=== PATIENT | male | born 1985 | race Caucasian/White ===

== ENCOUNTER 2017-04-02 21:37 | Inpatient (IN) | payer MEDICAID, OTHER ==
[~2017-04-02] VITALS: Ht 170.2 cm; Wt 59.0 kg
[2017-04-02 21:50] VITALS: BP 124/78
[2017-04-02] MEDS ORDERED: Cefepime HCl 1 GM in NS 55 ML IV STA (22:10)
[2017-04-02] MEDS ORDERED: Morphine Sulfate 4mg/ml Inj IVP ONE (22:15)
[2017-04-02] MEDS ORDERED: Vancomycin 1 GM in NS 275 ML IV ONE (22:15)
--- NOTE | 2017-04-02 22:15 | Emergency Room Report ---
History of Present Illness General Chief Complaint: Pain Source: Patient Present Illness HPI The patient presents with a month of rectal pain. It's been worse over 7 days. Last 3 days he started having fevers and chills. The patient is HIV positive and is not taking anti-viral medications for over a year. He's also had a cough. Been nonproductive. He denies any vomiting. He' s been incontinent of stool because he is using numbing medication in the rectal area to help with the pain. The pain is severe 10/10 and constant, burning and sharp when he hasn't used numbing medication. With the medicine, it has reduced the pain. No blood in stool. Sig other suggested possible hemorrhoids. Some mention of possible "trauma" but when asked about this, he denies. No chest pain, lymphadenopathy, NV, dysuria, rashes. No depression. States uses several different drugs, but not recently. 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/17) Patient History Past Medical History: see triage record Social History: Reports: drug use, Denies: smoking, alcohol use Social History Narrative homeless, with sig other Reviewed Nursing Documentation: PMH: Agreed, PSxH: Agreed Nursing Documentation-PMH Hx Asthma: Yes Review of Systems All Other Systems: negative except mentioned in HPI Physical Exam Vital Signs Date Time Temp Pulse Resp B/P (MAP) Pulse Ox O2 Delivery O2 Flow Rate FiO2 04/02/17 21:44 100.6 102 18 124/78 98 Room Air Sp02 EP Interpretation: reviewed, normal General Appearance: well appearing, no apparent distress, GCS 15 Head: normocephalic Eyes: bilateral eye PERRL, bilateral eye Scleral Injection ENT: moist mucus membranes Neck: supple Respiratory: lungs clear, normal breath sounds Cardiovascular #1: regular rate, rhythm Cardiovascular #2: 2+ radial (R) Gastrointestinal: normal inspection, normal bowel sounds, non tender, no mass, non-distended Rectal: tenderness, other - laxity and no bogginess, no erythema or evidence of vesicular lesions Musculoskeletal: back normal, gait/station normal, normal range of motion Neurologic: alert, oriented x3, grossly normal Psychiatric: depressed affect Skin: normal inspection, warm/dry Medical Decision Making Diagnostic Impression: Primary Impression: Proctitis Additional Impressions: HIV (human immunodeficiency virus infection) Non compliance w medication regimen Amphetamine abuse ER Course Patient presents with rectal pain and fever with immune compromise. DDx: Kaposi 's sarcoma, hemorrhoids, proctitis, shimon-rectal abscess, bronchitis, protozoal infection, STD, H. simplex amongst others. At high risk as immune compromised. Evaluation with CXR, CT abdomen/pelvis, labs. Treatment with IV hydration, analgesia and antibiotics. CXR no infiltrate. Labs with low WBC, + amphetamines CT without perirectal abscess (though incomplete exam). Presented to Dr. Clinton who refuses the transfer and wants the patient admitted here. Due to fever, HIV non compliance and rectal pain, needs continued antibiotics and evaluation for possible resumption of antivirals. Admit Med, Dr. Serrano. Laboratory Tests Test 04/02/17 22:45 04/02/17 22:46 04/02/17 23:12 Urine Color Yellow Urine Appearance Clear Urine pH 5 (4.5-8.0) Urine Specific [place] 1.020 (1.005-1.035) Urine Protein Negative (NEGATIVE) Urine Glucose (UA) Negative (NEGATIVE) Urine Ketones Negative (NEGATIVE) Urine Occult Blood Negative (NEGATIVE) Urine Nitrite Negative (NEGATIVE) Urine Bilirubin Negative (NEGATIVE) Urine Urobilinogen Normal MG/DL (0.0-1.0) Urine Leukocyte Esterase Negative (NEGATIVE) Urine Opiates Screen Negative (NEGATIVE) Urine Barbiturates Screen Negative (NEGATIVE) Phencyclidine (PCP) Screen Negative (NEGATIVE) Urine Amphetamines Screen Positive (NEGATIVE) H Urine Benzodiazepines Screen Negative (NEGATIVE) Urine Cocaine Screen Negative (NEGATIVE) Urine Marijuana (THC) Screen Negative (NEGATIVE) White Blood Count 4.0 K/UL (4.8-10.8) L Red Blood Count 4.29 M/UL (4.70-6.10) L Hemoglobin 13.4 G/DL (14.2-18.0) L Hematocrit 39.0 % (42.0-52.0) L Mean Corpuscular Volume 91 FL (80-99) Mean Corpuscular Hemoglobin 31.2 PG (27.0-31.0) H Mean Corpuscular Hemoglobin Concent 34.3 G/DL (32.0-36.0) Red Cell Distribution Width 11.7 % (11.6-14.8) Platelet Count 242 K/UL (150-450) Mean Platelet Volume 6.3 FL (6.5-10.1) L Neutrophils (%) (Auto) 64.0 % (45.0-75.0) Lymphocytes (%) (Auto) 17.3 % (20.0-45.0) L Monocytes (%) (Auto) 10.3 % (1.0-10.0) H Eosinophils (%) (Auto) 6.4 % (0.0-3.0) H Basophils (%) (Auto) 2.0 % (0.0-2.0) Prothrombin Time 10.0 SEC (9.30-11.50) Prothrombin Time INR 1.0 (0.9-1.1) PTT 29 SEC (23-33) Sodium Level 137 MMOL/L (136-145) Potassium Level 3.6 MMOL/L (3.5-5.1) Chloride Level 102 MMOL/L (98-107) Carbon Dioxide Level 29 MMOL/L (21-32) Anion Gap 6 mmol/L (5-15) Blood Urea Nitrogen 14 mg/dL (7-18) Creatinine 1.1 MG/DL (0.55-1.30) Estimate Glomerular Filtration Rate > 60 mL/min (>60) Glucose Level 113 MG/DL (74-106) H Calcium Level 8.5 MG/DL (8.5-10.1) Total Bilirubin 0.2 MG/DL (0.2-1.0) Aspartate Amino Transferase (AST) 32 U/L (15-37) Alanine Aminotransferase (ALT) 37 U/L (12-78) Alkaline Phosphatase 72 U/L (46-116) Total Creatine Kinase 86 U/L (26-308) Troponin I 0.000 ng/mL (0.000-0.056) Total Protein 8.1 G/DL (6.4-8.2) Albumin 3.1 G/DL (3.4-5.0) L Globulin 5.0 g/dL Albumin/Globulin Ratio 0.6 (1.0-2.7) L Lactic Acid Level 1.50 mmol/L (0.66-2.22) EKG Diagnostic Results Rate: normal Rhythm: NSR ST Segments: no acute changes Rhythm Strip Diag. Results EP Interpretation: yes Rhythm: NSR, no PVC's, no ectopy Chest X-Ray Diagnostic Results Chest X-Ray Diagnostic Results : Chest X-Ray Ordered: Yes # of Views/Limited/Complete: 1 View Indication: Other EP Interpretation: Yes Interpretation: no consolidation, no effusion, no pneumothorax, no acute cardiopulmonary disease Impression: Other Electronically Signed by: Electronically signed by Serg Nair MD CT/MRI/US Diagnostic Results CT/MRI/US Diagnostic Results : Imaging Test Ordered: Abdomen and pelvic Impression No definitive evidence of elevated inflammatory changes. Appendix questionably this mode an unremarkable. No bowel dilatation moderate amount of stool in the colon trace amount of nonspecific free fluid in the pelvis mild atelectasis the lungs Last Vital Signs Date Time Temp Pulse Resp B/P (MAP) Pulse Ox O2 Delivery O2 Flow Rate FiO2 04/03/17 02:35 86 20 133/78 97 Room Air 04/02/17 23:27 100.6 Status: improved Disposition: ADMITTED INPATIENT Condition: Serious Referrals: [facility],REFERRING (PCP) Serg Nair M.D. Apr 02, 2017 22:15
[2017-04-02] MEDS ORDERED: Cefepime 1gm vial ONE (22:28)
[2017-04-02] MEDS ORDERED: Vancomycin 1gm inj IVPB ONE (22:29)
[2017-04-02 23:14] LABS: EOSINOPHILS % (AUTO) 6.4 % (0.0-3.0); LYMPHOCYTES % (AUTO) 17.3 % (20.0-45.0); MEAN CORPUSCULAR HEMOGLOBIN 31.2 PG (27.0-31.0); MEAN CORPUSCULAR HGB CONC 34.3 G/DL (32.0-36.0); MEAN CORPUSCULAR VOLUME 91 FL (80-99); MEAN PLATELET VOLUME 6.3 FL (6.5-10.1); MONOCYTES % (AUTO) 10.3 % (1.0-10.0); PLATELET COUNT 242 K/UL (150-450); RED BLOOD COUNT 4.29 M/UL (4.70-6.10); RED CELL DISTRIBUTION WIDTH 11.7 % (11.6-14.8)
[2017-04-02 23:14] LABS: APPEARANCE,URINE CLEAR; KETONES,URINE NEGATIVE (NEGATIVE); NITRITE,URINE NEGATIVE (NEGATIVE); PH,URINE 5 (4.5-8.0); UROBILINOGEN,URINE NORMAL MG/DL (0.0-1.0)
[2017-04-02 23:25] LABS: LEUKOCYTE ESTERASE ,URINE NEGATIVE (NEGATIVE); PROTEIN,URINE NEGATIVE (NEGATIVE)
[2017-04-02 23:53] LABS: ALANINE AMINOTRANSFERASE 37 U/L (12-78); ALBUMIN/GLOBULIN RATIO 0.6 (1.0-2.7); ANION GAP 6 mmol/L (5-15); ASPARTATE AMINO TRANSFERASE 32 U/L (15-37); CALCIUM 8.5 MG/DL (8.5-10.1); CARBON DIOXIDE 29 MMOL/L (21-32); CHLORIDE 102 MMOL/L (98-107); CREATININE 1.1 MG/DL (0.55-1.30); GLOMERULAR FILTRATION RATE > 60 mL/min (>60); POTASSIUM 3.6 MMOL/L (3.5-5.1); SODIUM 137 MMOL/L (136-145); TOTAL PROTEIN 8.1 G/DL (6.4-8.2)
[2017-04-03] MEDS ORDERED: Miralax 17gm pkt ORAL PRN (07:30)
[2017-04-03] MEDS ORDERED: Nitroglycerin Subl 0.4mg tab SL PRN (07:30)
[2017-04-03] MEDS ORDERED: Mylanta II UD 30ml ORAL PRN (07:30)
[2017-04-03 08:54] VITALS: BP 108/55
[2017-04-03] MEDS ORDERED: Zosyn 3.375gm/50ml Premix 50 ML IVPB SCH (09:00)
[2017-04-03] MEDS: Heparin 5000 units/ml inj SUBQ SCH ×2 (09:00→20:08)
[2017-04-03] MEDS: Pantoprazole Inj IVP SCH ×2 (09:00→09:12)
--- NOTE | 2017-04-03 09:07 | Diagnostic Imaging Report ---
Indication: Abdominal pain Technique: Continuous helical transaxial imaging of the abdomen and pelvis was obtained from the lung bases to the pubic symphysis during intravenous contrast administration. Coronal 2-D reformats were also obtained. Study obtained in a Siemens sensation [address] Total Dose length Product (DLP): [address] Dose Index Volume (CTDIvol): 12.77, 0.15 mGy Comparison: None Findings: There is a moderate amount of fecal retention within the colon. The stomach is distended with particular matter as well. Solid organ show no gross abnormalities. The gallbladder is unremarkable. There is no hydronephrosis. The appendix is not well seen. There is no evidence of bowel obstruction, free fluid or free air. Impression: Moderate stool. Negative exam otherwise The CT scanner at [facility] is accredited by the [employer] and the scans are performed using dose optimization techniques as appropriate to a performed exam including Automatic Exposure control.
[2017-04-03] MEDS: D5 1/2NS 1,000 ML IV SCH ×2 (09:12→21:37)
--- NOTE | 2017-04-03 11:08 | Diagnostic Imaging Report ---
Indication: Dyspnea Comparison: None A single view chest radiograph was obtained. Findings: Cardiomediastinal appearance is within normal limits for age. Pulmonary vascularity is appropriate. The diaphragmatic contour is smooth and costophrenic angles are sharp. No pleural effusions are identified. The bones are unremarkable. Impression: No acute findings
[2017-04-03 12:15] VITALS: BP 124/67
--- NOTE | 2017-04-03 13:07 | GI Initial Consult Note ---
History of Present Illness General Date patient seen: Apr 03, 2017 Time patient seen: 13:00 Reason for Hospitalization: Pain Referring physician: VICKEY MANRIQUE Reason for Consultation: RECTAL PAIN Present Illness HPI The patient presents with a month of rectal pain. It's been worse over 7 days. Last 3 days he started having fevers and chills. The patient is HIV positive and is not taking anti-viral medications for over a year. He's also had a cough. Been nonproductive. He denies any vomiting. He' s been incontinent of stool because he is using numbing medication in the rectal area to help with the pain. The pain is severe 10/10 and constant she hasn't used numbing medication. GI consulted for rectal pain. HPI as noted above. Pt seen on floor, awake A& Ox4 NAD with no active s/sx of N/V/D. Rectum is inflamed, with mild rash and tender to touch. Denies any recent sexual contact. Denies any unintentional weight loss or changes in dietary habits. No know history of endoscopy/ colonoscopies. 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) Patient History History Provided By: Patient, Medical Record Past Medical History: other - HIV PMH Narrative Past Medical History: see triage record Social History: Reports: drug use, Denies: smoking, alcohol use Social History Narrative homeless, with sig other Reviewed Nursing Documentation: PMH: Agreed, PSxH: Agreed Nursing Documentation-PMH Hx Asthma: Yes Review of Systems All Other Systems: negative except mentioned in HPI Physical Exam Vital Signs Date Time Temp Pulse Resp B/P (MAP) Pulse Ox O2 Delivery O2 Flow Rate FiO2 04/02/17 21:44 100.6 102 18 124/78 98 Room Air Sp02 EP Interpretation: reviewed, normal Labs Laboratory Tests Test 04/02/17 22:45 04/02/17 22:46 04/02/17 23:12 Urine Color Yellow Urine Appearance Clear Urine pH 5 (4.5-8.0) Urine Specific [place] 1.020 (1.005-1.035) Urine Protein Negative (NEGATIVE) Urine Glucose (UA) Negative (NEGATIVE) Urine Ketones Negative (NEGATIVE) Urine Occult Blood Negative (NEGATIVE) Urine Nitrite Negative (NEGATIVE) Urine Bilirubin Negative (NEGATIVE) Urine Urobilinogen Normal MG/DL (0.0-1.0) Urine Leukocyte Esterase Negative (NEGATIVE) Urine Opiates Screen Negative (NEGATIVE) Urine Barbiturates Screen Negative (NEGATIVE) Phencyclidine (PCP) Screen Negative (NEGATIVE) Urine Amphetamines Screen Positive (NEGATIVE) H Urine Benzodiazepines Screen Negative (NEGATIVE) Urine Cocaine Screen Negative (NEGATIVE) Urine Marijuana (THC) Screen Negative (NEGATIVE) White Blood Count 4.0 K/UL (4.8-10.8) L Red Blood Count 4.29 M/UL (4.70-6.10) L Hemoglobin 13.4 G/DL (14.2-18.0) L Hematocrit 39.0 % (42.0-52.0) L Mean Corpuscular Volume 91 FL (80-99) Mean Corpuscular Hemoglobin 31.2 PG (27.0-31.0) H Mean Corpuscular Hemoglobin Concent 34.3 G/DL (32.0-36.0) Red Cell Distribution Width 11.7 % (11.6-14.8) Platelet Count 242 K/UL (150-450) Mean Platelet Volume 6.3 FL (6.5-10.1) L Neutrophils (%) (Auto) 64.0 % (45.0-75.0) Lymphocytes (%) (Auto) 17.3 % (20.0-45.0) L Monocytes (%) (Auto) 10.3 % (1.0-10.0) H Eosinophils (%) (Auto) 6.4 % (0.0-3.0) H Basophils (%) (Auto) 2.0 % (0.0-2.0) Prothrombin Time 10.0 SEC (9.30-11.50) Prothromb Time International Ratio 1.0 (0.9-1.1) Activated Partial Thromboplast Time 29 SEC (23-33) Sodium Level 137 MMOL/L (136-145) Potassium Level 3.6 MMOL/L (3.5-5.1) Chloride Level 102 MMOL/L (98-107) Carbon Dioxide Level 29 MMOL/L (21-32) Anion Gap 6 mmol/L (5-15) Blood Urea Nitrogen 14 mg/dL (7-18) Creatinine 1.1 MG/DL (0.55-1.30) Estimat Glomerular Filtration Rate > 60 mL/min (>60) Glucose Level 113 MG/DL (74-106) H Calcium Level 8.5 MG/DL (8.5-10.1) Total Bilirubin 0.2 MG/DL (0.2-1.0) Aspartate Amino Transf (AST/SGOT) 32 U/L (15-37) Alanine Aminotransferase (ALT/SGPT) 37 U/L (12-78) Alkaline Phosphatase 72 U/L (46-116) Total Creatine Kinase 86 U/L (26-308) Troponin I 0.000 ng/mL (0.000-0.056) Total Protein 8.1 G/DL (6.4-8.2) Albumin 3.1 G/DL (3.4-5.0) L Globulin 5.0 g/dL Albumin/Globulin Ratio 0.6 (1.0-2.7) L Lactic Acid Level 1.50 mmol/L (0.66-2.22) General Appearance: well appearing, no apparent distress, alert Head: normocephalic EENT: PERRL/EOMI, normal ENT inspection Neck: supple Respiratory: normal breath sounds, no respiratory distress Cardiovascular: normal rate Gastrointestinal: normal inspection, non tender, soft, normal bowel sounds, non -distended Rectal: deferred Genitourinary: deferred Musculoskeletal: normal inspection, back normal Neurologic: normal inspection, alert, oriented x3, responsive Psychiatric: normal inspection, judgement/insight normal, memory normal Skin: normal inspection, normal color, no rash, warm/dry, palpation normal, well hydrated Lymphatic: normal inspection, no adenopathy Current Medications Current Medications Medications (Trade) Dose Ordered Sig/Marjan Route PRN Reason Start Time Stop Time Status Last Admin Dose Admin Acetaminophen (Tylenol) 650 mg Q4H PRN ORAL fever 04/03/17 07:30 05/03/17 07:29 Al Hydroxide/Mg Hydroxide (Mylanta II) 30 ml Q6H PRN ORAL dyspepsia 04/03/17 07:30 05/03/17 07:29 Dextrose (Dextrose 50%) STAT PRN IV Hypoglycemia 04/03/17 07:30 05/03/17 07:29 Dextrose/Sodium Chloride 1,000 ml @ 75 mls/hr [id number] IV 04/03/17 08:00 05/03/17 07:59 04/03/17 09:12 Diphenhydramine HCl (Benadryl) 25 mg Q6H PRN ORAL Itching/Pruritis 04/03/17 07:30 05/03/17 07:29 Heparin Sodium (Porcine) (Heparin 5000 units/ml) 5,000 units EVERY 12 HOURS SUBQ 04/03/17 09:00 05/03/17 08:59 Nitroglycerin (Ntg) 0.4 mg Q5M X 3 DOSES PRN SL Prn Chest Pain 04/03/17 07:30 05/03/17 07:29 Ondansetron HCl (Zofran) 4 mg Q6H PRN IVP Nausea & Vomiting 04/03/17 07:30 05/03/17 07:29 Pantoprazole (Protonix) 40 mg DAILY IVP 04/03/17 09:00 05/03/17 08:59 Piperacillin/ Tazobactam/ Dextrose 50 ml @ 12.5 mls/hr EVERY 8 HOURS IVPB 04/03/17 09:00 04/08/17 08:59 04/03/17 10:15 Polyethylene Glycol (Miralax) 17 gm HSPRN PRN ORAL Constipation 04/03/17 07:30 05/03/17 07:29 Temazepam (Restoril) 15 mg HSPRN PRN ORAL Insomnia 04/03/17 07:30 04/10/17 07:29 GI: Plan Problems: (1) Rectal pain (2) Proctitis (3) Amphetamine abuse (4) HIV (human immunodeficiency virus infection) (5) Non compliance w medication regimen Plan CT AP reviewed >> moderate stool utox >> amphetamine positive Flex sig scheduled for tomorrow. - CLD now, NPO @ SD. - hold all blood thinners tonight Anusol prn fu labs Discussed with Dr. Chávez. Thank you for this patient referral, we will follow. Génesis Madsen N.P. Apr 03, 2017 13:07
--- NOTE | 2017-04-03 14:06 | History and Physical ---
History of Present Illness General Date patient seen: Apr 03, 2017 Reason for Hospitalization: Pain Present Illness HPI 31 year old male with hx of HIV positive and is not taking anti-viral medications for over a year presented with a month of rectal pain. It's been worse over 7 days. Last 3 days he started having fevers and chills. He's also had a cough. Been nonproductive. He denies any vomiting. Patient is admitted for possible proctitis. 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, 04/02/17) Patient History Healthcare decision maker Resuscitation status Advanced Directive on File Past Medical/Surgical History Past Medical/Surgical History: (1) HIV (human immunodeficiency virus infection) Review of Systems All Other Systems: negative except mentioned in HPI Physical Exam General Appearance: WD/WN Lines, tubes and drains: peripheral HEENT: normocephalic, atraumatic Neck: non-tender, normal alignment Respiratory/Chest: chest wall non-tender, lungs clear Breasts: no masses Cardiovascular/Chest: normal rate Abdomen: normal bowel sounds Last 24 Hour Vital Signs Date Time Temp Pulse Resp B/P (MAP) Pulse Ox O2 Delivery O2 Flow Rate FiO2 04/03/17 12:15 98.2 81 18 124/67 100 Room Air 04/03/17 08:54 97.0 84 19 108/55 100 Room Air 04/03/17 02:35 86 20 133/78 97 Room Air 04/02/17 23:27 100.6 04/02/17 21:50 100.6 72 18 124/78 98 Room Air 04/02/17 21:44 100.6 102 18 124/78 98 Room Air Laboratory Tests Test 04/02/17 22:45 04/02/17 22:46 04/02/17 23:12 Urine Color Yellow Urine Appearance Clear Urine pH 5 (4.5-8.0) Urine Specific [place] 1.020 (1.005-1.035) Urine Protein Negative (NEGATIVE) Urine Glucose (UA) Negative (NEGATIVE) Urine Ketones Negative (NEGATIVE) Urine Occult Blood Negative (NEGATIVE) Urine Nitrite Negative (NEGATIVE) Urine Bilirubin Negative (NEGATIVE) Urine Urobilinogen Normal MG/DL (0.0-1.0) Urine Leukocyte Esterase Negative (NEGATIVE) Urine Opiates Screen Negative (NEGATIVE) Urine Barbiturates Screen Negative (NEGATIVE) Phencyclidine (PCP) Screen Negative (NEGATIVE) Urine Amphetamines Screen Positive (NEGATIVE) H Urine Benzodiazepines Screen Negative (NEGATIVE) Urine Cocaine Screen Negative (NEGATIVE) Urine Marijuana (THC) Screen Negative (NEGATIVE) White Blood Count 4.0 K/UL (4.8-10.8) L Red Blood Count 4.29 M/UL (4.70-6.10) L Hemoglobin 13.4 G/DL (14.2-18.0) L Hematocrit 39.0 % (42.0-52.0) L Mean Corpuscular Volume 91 FL (80-99) Mean Corpuscular Hemoglobin 31.2 PG (27.0-31.0) H Mean Corpuscular Hemoglobin Concent 34.3 G/DL (32.0-36.0) Red Cell Distribution Width 11.7 % (11.6-14.8) Platelet Count 242 K/UL (150-450) Mean Platelet Volume 6.3 FL (6.5-10.1) L Neutrophils (%) (Auto) 64.0 % (45.0-75.0) Lymphocytes (%) (Auto) 17.3 % (20.0-45.0) L Monocytes (%) (Auto) 10.3 % (1.0-10.0) H Eosinophils (%) (Auto) 6.4 % (0.0-3.0) H Basophils (%) (Auto) 2.0 % (0.0-2.0) Prothrombin Time 10.0 SEC (9.30-11.50) Prothromb Time International Ratio 1.0 (0.9-1.1) Activated Partial Thromboplast Time 29 SEC (23-33) Sodium Level 137 MMOL/L (136-145) Potassium Level 3.6 MMOL/L (3.5-5.1) Chloride Level 102 MMOL/L (98-107) Carbon Dioxide Level 29 MMOL/L (21-32) Anion Gap 6 mmol/L (5-15) Blood Urea Nitrogen 14 mg/dL (7-18) Creatinine 1.1 MG/DL (0.55-1.30) Estimat Glomerular Filtration Rate > 60 mL/min (>60) Glucose Level 113 MG/DL (74-106) H Calcium Level 8.5 MG/DL (8.5-10.1) Total Bilirubin 0.2 MG/DL (0.2-1.0) Aspartate Amino Transf (AST/SGOT) 32 U/L (15-37) Alanine Aminotransferase (ALT/SGPT) 37 U/L (12-78) Alkaline Phosphatase 72 U/L (46-116) Total Creatine Kinase 86 U/L (26-308) Troponin I 0.000 ng/mL (0.000-0.056) Total Protein 8.1 G/DL (6.4-8.2) Albumin 3.1 G/DL (3.4-5.0) L Globulin 5.0 g/dL Albumin/Globulin Ratio 0.6 (1.0-2.7) L Lactic Acid Level 1.50 mmol/L (0.66-2.22) Height (Feet): 5 Height (Inches): 7.00 Weight (Pounds): 130 Medications Current Medications Medications (Trade) Dose Ordered Sig/Marjan Route PRN Reason Start Time Stop Time Status Last Admin Dose Admin Acetaminophen (Tylenol) 650 mg Q4H PRN ORAL fever 04/03/17 07:30 05/03/17 07:29 Al Hydroxide/Mg Hydroxide (Mylanta II) 30 ml Q6H PRN ORAL dyspepsia 04/03/17 07:30 05/03/17 07:29 Dextrose (Dextrose 50%) STAT PRN IV Hypoglycemia 04/03/17 07:30 05/03/17 07:29 Dextrose/Sodium Chloride 1,000 ml @ 75 mls/hr [id number] IV 04/03/17 08:00 05/03/17 07:59 04/03/17 09:12 Diphenhydramine HCl (Benadryl) 25 mg Q6H PRN ORAL Itching/Pruritis 04/03/17 07:30 05/03/17 07:29 Heparin Sodium (Porcine) (Heparin 5000 units/ml) 5,000 units EVERY 12 HOURS SUBQ 04/03/17 09:00 05/03/17 08:59 Magnesium Citrate (Citrate Of Magnesia) 300 ml ONCE ONCE ORAL 04/03/17 16:00 04/03/17 16:01 Nitroglycerin (Ntg) 0.4 mg Q5M X 3 DOSES PRN SL Prn Chest Pain 04/03/17 07:30 05/03/17 07:29 Ondansetron HCl (Zofran) 4 mg Q6H PRN IVP Nausea & Vomiting 04/03/17 07:30 05/03/17 07:29 Pantoprazole (Protonix) 40 mg DAILY IVP 04/03/17 09:00 05/03/17 08:59 Piperacillin/ Tazobactam/ Dextrose 50 ml @ 12.5 mls/hr EVERY 8 HOURS IVPB 04/03/17 09:00 04/08/17 08:59 04/03/17 10:15 Polyethylene Glycol (Miralax) 17 gm HSPRN PRN ORAL Constipation 04/03/17 07:30 05/03/17 07:29 Polyethylene Glycol (Miralax) 238 gm ONCE ONCE ORAL 04/03/17 16:00 04/03/17 16:01 Sodium Phosphate (Fleet's Sodium Phosl Enema) 133 ml ONCE ONCE RECTAL 04/03/17 23:00 04/03/17 23:01 Temazepam (Restoril) 15 mg HSPRN PRN ORAL Insomnia 04/03/17 07:30 04/10/17 07:29 Assessment/Plan Problem List: (1) Proctitis ICD Codes: K62.89 - Other specified diseases of anus and rectum SNOMED: 9201077 (2) Rectal pain ICD Codes: K62.89 - Other specified diseases of anus and rectum SNOMED: 52613055 (3) HIV (human immunodeficiency virus infection) ICD Codes: B20 - Human immunodeficiency virus [HIV] disease SNOMED: 77814845 Assessment/Plan ID and GI evaluation NPO IV fluids symptomatic treatment VICKEY MANRIQUE Apr 03, 2017 14:06
--- NOTE | 2017-04-03 15:34 | Cardiology Report ---
APPROVED REPORT EKG Measurement Heart [id number] Normal sinus rhythm Normal ECG
[2017-04-03] MEDS ORDERED: Magnesium Citrate Liq Btl ORAL ONE (16:00)
[2017-04-03] MEDS ORDERED: Polyethylene Glycol 238gm bottle ORAL ONE (16:00)
[2017-04-03 16:05] VITALS: BP 110/69
--- NOTE | 2017-04-03 17:39 | Consultation ---
Consult Note Consult Note dic # [id number] CHRISSY GONGORA M.D. Apr 03, 2017 17:39
[2017-04-03 20:00] VITALS: BP 112/67
[2017-04-03] MEDS ORDERED: cefTRIAXone 1 GM in D5W 55 ML IVPB SCH (21:00)
[2017-04-03] MEDS ORDERED: Fleet's Enema 133ml RECTAL ONE (23:00)
[2017-04-04] VITALS: BP 107/67
[2017-04-04 06:36] LABS: BASOPHILS % (AUTO) 3.1 % (0.0-2.0); LYMPHOCYTES % (AUTO) 22.5 % (20.0-45.0); MEAN CORPUSCULAR HEMOGLOBIN 31.8 PG (27.0-31.0); MEAN CORPUSCULAR VOLUME 91 FL (80-99); MEAN PLATELET VOLUME 5.9 FL (6.5-10.1); MONOCYTES % (AUTO) 13.6 % (1.0-10.0); NEUTROPHILS % (AUTO) 52.8 % (45.0-75.0); PLATELET COUNT 173 K/UL (150-450); RED BLOOD COUNT 4.37 M/UL (4.70-6.10); RED CELL DISTRIBUTION WIDTH 11.7 % (11.6-14.8); WHITE BLOOD COUNT 4.2 K/UL (4.8-10.8)
[2017-04-04 06:50] LABS: PROTHROMBIN TIME 10.1 SEC (9.30-11.50)
--- NOTE | 2017-04-04 07:08 | Anethesia Preoperative Eval ---
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 Exam Physician Exam Last Vital Signs Date Time Temp Pulse Resp B/P (MAP) Pulse Ox O2 Delivery O2 Flow Rate FiO2 04/04/17 00:00 97.9 89 20 107/67 98 Room Air Anesthesia Pre-op A/P Labs Hematology Test 04/04/17 03:35 White Blood Count Pending Red Blood Count 4.37 M/UL (4.70-6.10) L Hemoglobin 13.9 G/DL (14.2-18.0) L Hematocrit 39.7 % (42.0-52.0) L Mean Corpuscular Volume 91 FL (80-99) Mean Corpuscular Hemoglobin 31.8 PG (27.0-31.0) H Mean Corpuscular Hemoglobin Concent 35.0 G/DL (32.0-36.0) Red Cell Distribution Width 11.7 % (11.6-14.8) Platelet Count 173 K/UL (150-450) Mean Platelet Volume 5.9 FL (6.5-10.1) L Neutrophils (%) (Auto) 52.8 % (45.0-75.0) Lymphocytes (%) (Auto) 22.5 % (20.0-45.0) Monocytes (%) (Auto) 13.6 % (1.0-10.0) H Eosinophils (%) (Auto) 8.0 % (0.0-3.0) H Basophils (%) (Auto) 3.1 % (0.0-2.0) H Lymphocytes Pending Coagulation Test 04/04/17 03:35 Prothrombin Time 10.1 SEC (9.30-11.50) Prothromb Time International Ratio 1.0 (0.9-1.1) Activated Partial Thromboplast Time 29 SEC (23-33) Chemistry Test 04/04/17 03:35 Sodium Level Pending Potassium Level Pending Chloride Level Pending Carbon Dioxide Level Pending Blood Urea Nitrogen Pending Creatinine Pending Estimat Glomerular Filtration Rate Pending Glucose Level Pending Calcium Level Pending Total Bilirubin Pending Aspartate Amino Transf (AST/SGOT) Pending Alanine Aminotransferase (ALT/SGPT) Pending Alkaline Phosphatase Pending Total Protein Pending Albumin Pending Globulin Pending Amylase Level Pending Lipase Pending Risk Assessment & Plan Assessment: asa3 Plan: MIMA Jennings Apr 04, 2017 07:08
[2017-04-04 08:00] VITALS: BP 117/63
[2017-04-04 08:04] LABS: ALANINE AMINOTRANSFERASE 38 U/L (12-78); ALBUMIN/GLOBULIN RATIO 0.6 (1.0-2.7); AMYLASE 57 U/L (25-115); ANION GAP 6 mmol/L (5-15); ASPARTATE AMINO TRANSFERASE 29 U/L (15-37); CARBON DIOXIDE 29 MMOL/L (21-32); CHLORIDE 107 MMOL/L (98-107); CREATININE 0.9 MG/DL (0.55-1.30); GLOMERULAR FILTRATION RATE > 60 mL/min (>60); LIPASE 132 U/L (73-393); POTASSIUM 4.2 MMOL/L (3.5-5.1); SODIUM 142 MMOL/L (136-145); TOTAL PROTEIN 6.7 G/DL (6.4-8.2)
[2017-04-04] MEDS: Heparin 5000 units/ml inj SUBQ SCH (09:00)
[2017-04-04] MEDS: Pantoprazole Inj IVP SCH (09:04)
--- NOTE | 2017-04-04 09:30 | Infectious Diseases Prog Note ---
Assessment/Plan Assessment/Plan A: 31 year old male with Hx of HIV Probable proctitis Ro GC, Chlam , LGV rectal pain improved. 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) Subjective afebrile Objective Vital Signs Last 24 Hour Vital Signs Date Time Temp Pulse Resp B/P (MAP) Pulse Ox O2 Delivery O2 Flow Rate FiO2 04/04/17 00:00 97.9 89 20 107/67 98 Room Air 04/03/17 20:00 98.4 94 20 112/67 98 Room Air 04/03/17 16:05 97.8 85 20 110/69 98 Room Air 04/03/17 12:15 98.2 81 18 124/67 100 Room Air Height (Feet): 5 Height (Inches): 7.00 Weight (Pounds): 130 HEENT: mucous membranes moist Respiratory/Chest: normal breath sounds Cardiovascular: regular rhythm Abdomen: non distended Microbiology Date/Time Source Procedure Growth Status 04/02/17 22:45 Blood Blood Culture - Preliminary NO GROWTH AFTER 24 HOURS Resulted 04/02/17 22:30 Blood Blood Culture - Preliminary NO GROWTH AFTER 24 HOURS Resulted Laboratory Tests Test 04/03/17 21:50 04/04/17 00:00 04/04/17 03:35 Chlamydia trachomatis RNA Pending HIV-1 Antibody Pending HIV-2 Antibody Pending White Blood Count Pending Red Blood Count 4.37 M/UL (4.70-6.10) L Hemoglobin 13.9 G/DL (14.2-18.0) L Hematocrit 39.7 % (42.0-52.0) L Mean Corpuscular Volume 91 FL (80-99) Mean Corpuscular Hemoglobin 31.8 PG (27.0-31.0) H Mean Corpuscular Hemoglobin Concent 35.0 G/DL (32.0-36.0) Red Cell Distribution Width 11.7 % (11.6-14.8) Platelet Count 173 K/UL (150-450) Mean Platelet Volume 5.9 FL (6.5-10.1) L Neutrophils (%) (Auto) 52.8 % (45.0-75.0) Lymphocytes (%) (Auto) 22.5 % (20.0-45.0) Monocytes (%) (Auto) 13.6 % (1.0-10.0) H Eosinophils (%) (Auto) 8.0 % (0.0-3.0) H Basophils (%) (Auto) 3.1 % (0.0-2.0) H Lymphocytes Pending Prothrombin Time 10.1 SEC (9.30-11.50) Prothromb Time International Ratio 1.0 (0.9-1.1) Activated Partial Thromboplast Time 29 SEC (23-33) Sodium Level 142 MMOL/L (136-145) Potassium Level 4.2 MMOL/L (3.5-5.1) Chloride Level 107 MMOL/L (98-107) Carbon Dioxide Level 29 MMOL/L (21-32) Anion Gap 6 mmol/L (5-15) Blood Urea Nitrogen 9 mg/dL (7-18) Creatinine 0.9 MG/DL (0.55-1.30) Estimat Glomerular Filtration Rate > 60 mL/min (>60) Glucose Level 85 MG/DL (74-106) Calcium Level 8.0 MG/DL (8.5-10.1) L Total Bilirubin 0.2 MG/DL (0.2-1.0) Aspartate Amino Transf (AST/SGOT) 29 U/L (15-37) Alanine Aminotransferase (ALT/SGPT) 38 U/L (12-78) Alkaline Phosphatase 60 U/L (46-116) Total Protein 6.7 G/DL (6.4-8.2) Albumin 2.6 G/DL (3.4-5.0) L Globulin 4.1 g/dL Albumin/Globulin Ratio 0.6 (1.0-2.7) L Amylase Level 57 U/L (25-115) Lipase 132 U/L (73-393) Percent CD3 Cells Pending Absolute CD3 Count Pending Percent CD4 Cells Pending Absolute CD4 Count Pending T-Lymphocyte CD4/CD8 Ratio Pending Percent CD8 Cells Pending Absolute CD8 Count Pending HIV-1 RNA (PCR) log10 Value Pending HIV-1 RNA Ultraquantitative (PCR) Pending HIV (1&2) Antibody Rapid Preliminary positive Current Medications Medications (Trade) Dose Ordered Sig/Marjan Route PRN Reason Start Time Stop Time Status Last Admin Dose Admin Acetaminophen (Tylenol) 650 mg Q4H PRN ORAL fever 04/03/17 07:30 05/03/17 07:29 Al Hydroxide/Mg Hydroxide (Mylanta II) 30 ml Q6H PRN ORAL dyspepsia 04/03/17 07:30 05/03/17 07:29 Ceftriaxone Sodium 1 gm/ Dextrose 55 ml @ 110 mls/hr Q24H IVPB 04/03/17 21:00 04/10/17 20:59 04/03/17 21:37 Dextrose (Dextrose 50%) STAT PRN IV Hypoglycemia 04/03/17 07:30 05/03/17 07:29 Dextrose/Sodium Chloride 1,000 ml @ 75 mls/hr [id number] IV 04/03/17 08:00 05/03/17 07:59 04/03/17 21:37 Diphenhydramine HCl (Benadryl) 25 mg Q6H PRN ORAL Itching/Pruritis 04/03/17 07:30 05/03/17 07:29 Doxycycline Monohydrate (Vibramycin) 100 mg EVERY 12 HOURS ORAL 04/03/17 21:00 04/10/17 20:59 04/04/17 09:04 Heparin Sodium (Porcine) (Heparin 5000 units/ml) 5,000 units EVERY 12 HOURS SUBQ 04/03/17 09:00 05/03/17 08:59 Nitroglycerin (Ntg) 0.4 mg Q5M X 3 DOSES PRN SL Prn Chest Pain 04/03/17 07:30 05/03/17 07:29 Ondansetron HCl (Zofran) 4 mg Q6H PRN IVP Nausea & Vomiting 04/03/17 07:30 05/03/17 07:29 Pantoprazole (Protonix) 40 mg DAILY IVP 04/03/17 09:00 05/03/17 08:59 04/04/17 09:04 Polyethylene Glycol (Miralax) 17 gm HSPRN PRN ORAL Constipation 04/03/17 07:30 05/03/17 07:29 Temazepam (Restoril) 15 mg HSPRN PRN ORAL Insomnia 04/03/17 07:30 04/10/17 07:29 CHRISSY GONGORA M.D. Apr 04, 2017 09:30
--- NOTE | 2017-04-04 09:45 | Consultation ---
DATE OF CONSULTATION: 04/03/2017 INFECTIOUS DISEASES CONSULTATION CONSULTING PHYSICIAN: Kirk Soria M.D REFERRING PHYSICIAN: Krzysztof Serrano M.D. REASON FOR CONSULTATION: Evaluation of the patient for proctitis and HIV. HISTORY OF PRESENT ILLNESS: The patient is a 31-year-old poor historian male, who was admitted to this medical center due to rectal pain for one month that has worsened recently. The patient denies having any rectal or anal sex however, the patient appears to have a male partner according to staff. The patient, however, declined to answer about sexual orientation. Overall during the interview, the patient did not say anything or provide any detailed information. 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 The patient has been off of diagnosis, however, he is interested to follow with an HIV provider. PAST MEDICAL HISTORY: Asthma, Guillain-[place] syndrome, HIV, unknown CD4 count. MEDICATIONS: On IV Zosyn. SOCIAL HISTORY: Limited, however, the patient denies drug abuse and smoking. However, to records, the patient has history of amphetamine abuse. FAMILY HISTORY: Noncontributory. REVIEW OF SYSTEMS: The patient had provided limited information. PHYSICAL EXAMINATION: VITAL SIGNS: T-max 100.6 degrees, blood pressure 110/69, pulse 85, respiratory rate 18. HEENT: No pale conjunctivae. No icterus. NECK: No lymphadenopathy. CHEST: Clear. HEART: S1 and S2. ABDOMEN: Soft and nontender. Anal area, no ulceration. RECTAL: Deferred to the GI risk and insurance consultant. NEUROLOGIC: Awake and alert. LABORATORY AND DIAGNOSTIC DATA: White blood cell 4, hemoglobin 13, platelets 242. UA unremarkable. BUN and creatinine normal. Liver function tests are unremarkable. Urine toxicology is positive for crystals. CT scan of the abdomen is negative overall. Chest x-ray unremarkable. ASSESSMENT: 1. Fever. 2. Possible proctitis, possible sexually transmitted diseases related, rule out GC and chlamydia and also needs to consider lymphogranuloma venereum. PLAN: 1. We will change antibiotics to Rocephin and doxycycline. 2. CBC. 3. Monitor BMP. 4. Recent rectal swab for GC and chlamydia. 5. HIV antibody PCR. 6. CD4 count. 7. sigmoidoscopy as per GI. 8. Based on the patient's clinical course and laboratories, we will do further recommendation. Thank you, Dr. Serrano, for allowing me to participate in the care of this patient. I will follow the patient with you during this hospitalization. Kirk Soria M.D. DR: Katey JOB#: [id number] CC:
[2017-04-04] MEDS ORDERED: Tubing IV Secondary IV ONE (10:29)
[2017-04-04] MEDS ORDERED: D5 1/2NS 1000ml IV ONE (10:29)
--- NOTE | 2017-04-04 11:06 | GI Progress Note ---
Assessment/Plan Problems: (1) Rectal pain ICD Codes: K62.89 - Other specified diseases of anus and rectum SNOMED: [id number] Status: stable Status Narrative Discussed with Dr. Chávez. Assessment/Plan pt left AMA refused flex sig states his rectal pain was better Subjective Subjective refused flex sig rectal pain still present Objective Last 24 Hour Vital Signs Date Time Temp Pulse Resp B/P (MAP) Pulse Ox O2 Delivery O2 Flow Rate FiO2 04/04/17 08:00 97.9 88 18 117/63 100 Room Air 04/04/17 00:00 97.9 89 20 107/67 98 Room Air 04/03/17 20:00 98.4 94 20 112/67 98 Room Air 04/03/17 16:05 97.8 85 20 110/69 98 Room Air 04/03/17 12:15 98.2 81 18 124/67 100 Room Air Laboratory Tests Test 04/03/17 21:50 04/04/17 00:00 04/04/17 03:35 Chlamydia trachomatis RNA Pending HIV-1 Antibody Pending HIV-2 Antibody Pending White Blood Count Pending Red Blood Count 4.37 M/UL (4.70-6.10) L Hemoglobin 13.9 G/DL (14.2-18.0) L Hematocrit 39.7 % (42.0-52.0) L Mean Corpuscular Volume 91 FL (80-99) Mean Corpuscular Hemoglobin 31.8 PG (27.0-31.0) H Mean Corpuscular Hemoglobin Concent 35.0 G/DL (32.0-36.0) Red Cell Distribution Width 11.7 % (11.6-14.8) Platelet Count 173 K/UL (150-450) Mean Platelet Volume 5.9 FL (6.5-10.1) L Neutrophils (%) (Auto) 52.8 % (45.0-75.0) Lymphocytes (%) (Auto) 22.5 % (20.0-45.0) Monocytes (%) (Auto) 13.6 % (1.0-10.0) H Eosinophils (%) (Auto) 8.0 % (0.0-3.0) H Basophils (%) (Auto) 3.1 % (0.0-2.0) H Lymphocytes Pending Prothrombin Time 10.1 SEC (9.30-11.50) Prothromb Time International Ratio 1.0 (0.9-1.1) Activated Partial Thromboplast Time 29 SEC (23-33) Sodium Level 142 MMOL/L (136-145) Potassium Level 4.2 MMOL/L (3.5-5.1) Chloride Level 107 MMOL/L (98-107) Carbon Dioxide Level 29 MMOL/L (21-32) Anion Gap 6 mmol/L (5-15) Blood Urea Nitrogen 9 mg/dL (7-18) Creatinine 0.9 MG/DL (0.55-1.30) Estimat Glomerular Filtration Rate > 60 mL/min (>60) Glucose Level 85 MG/DL (74-106) Calcium Level 8.0 MG/DL (8.5-10.1) L Total Bilirubin 0.2 MG/DL (0.2-1.0) Aspartate Amino Transf (AST/SGOT) 29 U/L (15-37) Alanine Aminotransferase (ALT/SGPT) 38 U/L (12-78) Alkaline Phosphatase 60 U/L (46-116) Total Protein 6.7 G/DL (6.4-8.2) Albumin 2.6 G/DL (3.4-5.0) L Globulin 4.1 g/dL Albumin/Globulin Ratio 0.6 (1.0-2.7) L Amylase Level 57 U/L (25-115) Lipase 132 U/L (73-393) Percent CD3 Cells Pending Absolute CD3 Count Pending Percent CD4 Cells Pending Absolute CD4 Count Pending T-Lymphocyte CD4/CD8 Ratio Pending Percent CD8 Cells Pending Absolute CD8 Count Pending HIV-1 RNA (PCR) log10 Value Pending HIV-1 RNA Ultraquantitative (PCR) Pending HIV (1&2) Antibody Rapid Preliminary positive Height (Feet): 5 Height (Inches): 7.00 Weight (Pounds): 130 General Appearance: WD/WN, no apparent distress, alert Cardiovascular: normal rate Respiratory/Chest: normal breath sounds, no respiratory distress Abdominal Exam: normal bowel sounds, non tender, soft Extremities: normal range of motion, non-tender Génesis Madsen N.PKarime Apr 04, 2017 11:06
--- NOTE | 2017-04-05 11:02 | Discharge Summary ---
Discharge Summary Hospital Course Date of Admission Apr 03, 2017 at 01:30 Date of Discharge Apr 04, 2017 at 10:30 Admitting Diagnosis immunesuppressed proctitis JASON Jony Givens is a 31 year old male who was admitted on Apr 03, 2017 at 01:30 for Immunesupressed Proctitis Hospital Course [id number] Discharge Discharge Disposition Patient left AMA Discharge Diagnoses: Kristyn Kulkarni NP Apr 05, 2017 11:01
--- NOTE | 2017-04-05 21:45 | Discharge Summary 2 SIG ---
DATE OF ADMISSION: 04/03/2017 DATE OF DISCHARGE: 04/04/2017 CONSULTANTS: 1. Kirk Soria M.D. 2. Sincere Chávez M.D. BRIEF HOSPITAL COURSE: The patient is a 31-year-old male, who presented to ED for complaints of one month rectal pain that has been worse for the past week and eventually developed fevers and chills. He is a known HIV positive and had not been taking antiviral medications for a year. He had cough, however, was nonproductive. He has been incontinent of stool as he was using numbing medication in the rectal area to help with pain. Pain was severe at 10/10, burning and sharp in nature. On evaluation at ED, chest x-ray showed no infiltrate. Laboratories with leukopenia, WBC was 4.0. Urine toxicology was positive for amphetamine. CT of the abdomen and pelvis showed moderate stool with no evidence of obstruction, no abscess. Due to immunocompromised state, the patient was admitted for antibiotics and for evaluation of resumption of antivirals. On interview, the patient did not provide any detailed information on his medical history. He was given Rocephin and doxycycline and was checked for STDs and CD4 count. He was initially placed on NPO and was scheduled for a flexible sigmoidoscopy. However, full treatment was not carried out as the patient signed out against medical advice. FINAL DIAGNOSES: 1. Possible proctitis, possible sexually transmitted disease related. 2. Human immunodeficiency virus. 3. Rectal pain. 4. Noncompliance. Krzysztof Serrano M.D. I have been assigned to dictate discharge summary on this account and I was not involved in the patient's management. Kristyn Kulkarni N.P. DR: Andrez JOB#: [id number] CC: PRASHANT
[2017-04-06 10:06] LABS: LYMPHOCYTES ABSOLUTE 0.8 x10E3/uL (0.7-3.1); WBC 3.4 x10E3/uL (3.4-10.8)
[2017-04-06 10:06] LABS: HIV-1 ANTIBODY Positive (Negative); HIV-2 ANTIBODY Negative (Negative)
[2017-04-09 13:00] LABS: HIV RNA PCR QUANT 5.33 (.)
== END 2017-04-04 10:30 | disposition left against medical advice (07) | DRG 254 ==
LOC: EMR 22:08 → EDBEDREQ 22:13 → 4W 04-03 01:30 → EDBEDREQ 04-03 01:40
DX: K62.89 Other specified diseases of anus and rectum (principal); B20 Human immunodeficiency virus [HIV] disease; F15.10 Other stimulant abuse, uncomplicated; Z91.14 Patient's other noncompliance with medication regimen; Z53.21 Procedure and treatment not carried out due to patient leaving prior to being seen by health care provider
CPT/HCPCS: 36415; 71010; 74177; 80053; 80307; 81003; 82150; 82550; 83605; 83690; 84484; 85025; 85610; 85730; 86360; 86689; 86703; 86850; 86900; 86901; 87040; 87081; 87491; 87536; 93005; 99285; J2405